=== PATIENT | male | born 1980 | race Two or more races ===

== ENCOUNTER 2016-07-24 09:52 | Day surgery (SDC) | payer BC ==
[~2016-07-24 09:52] MED LIST: BUPIVAC MPF-EPI 0.5%-1:200000 30 ML VIAL. ONE; FENTANYL PF 100 MCG/2 ML VIAL. IV PRN; HYDROMORPHONE 2 MG/ML VIAL. IV PRN; IV RINGERS,LACTATED 1000ML 1,000 ML IV SCH; LIDOCAINE 1% 1 ML SYRINGE. ID PRN; METHYLENE BLUE 1% 1 ML VIAL. ONE; MORPHINE SULFATE 2 MG/ML DISP.SYRIN. IV PRN; ONDANSETRON PF 4 MG/2 ML VIAL. IV PRN; PROCHLORPERAZINE 10 MG/2 ML VIAL. IV PRN
[2016-07-24] MEDS ORDERED: CEFAZOLIN 2GM PREMIX 50 ML IV ONE (09:59)
[2016-07-24] MEDS ORDERED: ONDANSETRON PF 4 MG/2 ML VIAL. ONE (10:38)
[2016-07-24] MEDS ORDERED: PROPOFOL 20 ML IV ONE (10:38)
[2016-07-24] MEDS ORDERED: DESFLURANE 31 TO 60 MINUTES IH ONE (10:38)
[2016-07-24] MEDS ORDERED: MIDAZOLAM HCL 2 MG/2 ML VIAL. ONE (10:38)
[2016-07-24] MEDS ORDERED: DEXAMETHASONE SOD PHOS 20 MG/5 ML VIAL. ONE (10:38)
[2016-07-24] MEDS ORDERED: LIDOCAINE 2% 100 MG/5 ML DISP.SYRIN. ONE (10:38)
[2016-07-24] MEDS ORDERED: ROCURONIUM 50 MG/5 ML VIAL. ONE (10:39)
[2016-07-24] MEDS ORDERED: FENTANYL PF 100 MCG/2 ML VIAL. ONE ×2 (10:39→11:58)
[2016-07-24] MEDS ORDERED: IV RINGERS,LACTATED 1000ML 1,000 ML IV SCH (11:00)
[2016-07-24] MEDS ORDERED: OXYC-323 PO (11:24)
[2016-07-24] MEDS ORDERED: NEOSTIGMINE METHYLSULFATE 5 MG/5 ML SYRINGE. ONE (11:37)
[2016-07-24] MEDS ORDERED: GLYCOPYRROLATE 1 MG/5 ML VIAL. ONE (11:37)
[2016-07-24] MEDS ORDERED: KETOROLAC 30 MG/ML SYRINGE FOR OR. INJ ONE (11:50)
--- NOTE | 2016-07-24 11:57 | PDOC ---
BRIEF OPERATIVE NOTE Pre-Op Diagnosis pilonidal cyst excision of pilonidal cyst flakita sams ebl 10 ivf 1000 renny well to rr stable. ANTONIO CHRISTIE MD Jul 24, 2016 11:57
[2016-07-24] MEDS ORDERED: OXYCODONE/APAP 5/325 TABLET. PO ONE (12:30)
[2016-07-24 12:55] VITALS: BP 145/83
--- NOTE | 2016-07-24 19:15 | OP ---
DATE OF SURGERY: 07/24/2016 PREOPERATIVE DIAGNOSIS: Pilonidal cyst. POSTOPERATIVE DIAGNOSIS: Pilonidal cyst. PROCEDURE: Excision of pilonidal cyst. SURGEON: Antonio Christie M.D. ANESTHESIA: General. ESTIMATED BLOOD LOSS: 10 mL. IV FLUIDS: 1000 mL. INDICATIONS: The patient is a 35-year-old male, who has had a pilonidal cyst that has been infected a couple of times. He is here for a definitive excision. DESCRIPTION OF PROCEDURE: After informed consent was obtained, the patient was taken to the operating room and placed in the supine position. After adequate induction of general anesthesia, he was placed prone and then he was prepped and draped in the usual sterile fashion. He did not have guzman hat allowed injection of the methylene blue, but he did have a prior I and D site that while mostly healed, with insertion of the hemostat did demonstrate a small cavity that extended to the midline from the right side. This cavity was injected with methylene blue and then an elliptical incision was made through what would be expected to be normal tissue just outside of the extent of the pilonidal disease. The dissection was carried through the subcutaneous tissue down to the presacral fascia with cautery and no methylene blue was encountered, indicating that the entirety of the demonstratable pilonidal disease was excised within the specimen. The specimen was sent to pathology for examination. The wound was injected with local anesthetic, it was irrigated. Hemostasis was obtained. The wound was then packed with saline-moistened gauze. Sterile dressings were placed. He tolerated the procedure well. There were no apparent complications. He was then transferred in stable condition to the recovery room. ANTONIO CHRISTIE MD DR: [email or web address]/maylin JOB#: [id number] / [id number] MYRA
--- NOTE | 2016-07-25 14:59 | PATHOLOGY ---
PATHOLOGY REPORT * * * * * * * * FINAL DIAGNOSIS: Skin and subcutaneous tissue, pilonidal cystectomy: - Pilonidal sinus, with surrounding fibrosis and chronic inflammation. (TAYM:; d/t: 07/25/16) REPORT ELECTRONICALLY SIGNED BY: Austin Paris M.D. DATE/TIME: 07/25/2016 14:54 * * * * * * * * GROSS PATHOLOGY: The specimen is received in formalin labeled "Lauri Beltran, pilonidal cyst". Received is an ellipse of abernathy-marr, grossly unremarkable skin with attached yellow-marr fibroadipose tissue measuring 5.3 x 3.5 x 2.9 cm in greatest dimensions. The surgical margin is inked. Sectioning reveals a linear sinus tract measuring 1.9 cm in length by 1.4 cm in diameter. The specimen is submitted representatively in cassette A1. (CAA; 07/24/2016) INITIAL CPT CODE(S): A; 61344 Professional services performed [place] [facility] [address] Technical services performed by [facility] at [address] [place] [address] [address] [address]. SPECIMEN(S) RECEIVED: A.Pilonidal cyst CLINICAL HISTORY: Cyst-pilonidal PATIENT: LAURI DEL TORO /AGE: 509/26/1980 (Age: 35) PATIENT #: [id number] ALT CASE #: SPECIMEN COLLECTION DATE: 07/24/2016 SPECIMEN RECEIVED DATE: 07/24/2016 [facility] - [address] [place] [address] - PHONE: [phone] * * * END OF REPORT * * *
== END 2016-07-24 13:17 | disposition home or self-care (01) ==
LOC: SURG 09:52
PROVIDERS: ATTEND Surgery
DX: L05.91 Pilonidal cyst without abscess (principal); Z83.3 Family history of diabetes mellitus
CPT/HCPCS: 11771; J0690; J1100; J1885; J2250; J2405; J2704; J2710; J3010; J3490; Q9968; 88304